=== PATIENT | male | born 1945 | race Caucasian/White ===

== ENCOUNTER 2016-03-02 12:51 | Inpatient (IN) | payer OTHER ==
[~2016-03-02] VITALS: Ht 185.4 cm; Wt 120.3 kg
[~2016-03-02 12:51] MED LIST: ALENDRONATE SOD70 MG PO; BENTYL10 MG PO; CALCIUM + VITA1 EACH PO; CARBAMAZEPINE100 MG PO; CEFEPIME HCL1 GM IM; CHLORHEXIDINE473 ML MM; COLACE100 MG PO; COUMADIN2 MG PO; COUMADIN4 MG PO; DECADRON4 MG PO; DEXAMETHASONE4 MG PO; DILANTIN INFATA50 MG PO; DILANTIN100 MG PO; FLAGYL500 MG PO; HYDROCODON-ACE1 EAC7 PO; KEPPRA500 MG PO; KLOR-CON 1010 ME1 PO; KLOR-CON M1010 MEQ PO; LASIX40 MG PO; LEVAQUIN 7750 MG/150 IV; OMEPRAZOLE20 MG PO; ROCEPHIN1000 MG IM; SENNA S TABLET1 EACH PO; SYNTHROID75 MCG PO; TEGRETOL100 MG PO; TEGRETOL200 MG PO; TYLENOL EXTRA500 MG PO; TYLENOL REGULA325 MG PO; VITAMIN D31000 UNIT PO; ZANTAC150 MG PO
[2016-03-02 13:36] LABS: HEMATOCRIT 44.3 % (38.0-50.0); MCH 32.6 PG (29.0-34.0); MCHC 33.2 G/DL (30.0-36.0); MCV 98.2 FL (86-99); PLATELET COUNT 204 K/uL (156-360); RBC DIS.WIDTH-CV 13.7 % (11.8-14.6); RBC DIS.WIDTH-SD 47.7 % (39-53); RED BLOOD COUNT 4.51 M/uL (4.00-5.50); WHITE BLOOD COUNT 12.7 K/uL (4.1-10.2)
[2016-03-02 13:47] LABS: CHLORIDE 105 mEq/L (99-109); POTASSIUM 3.7 mEq/L (3.7-5.4); SODIUM 146 mEq/L (136-147)
[2016-03-02 13:48] LABS: GLUCOSE 120 mg/dL (70-99)
[2016-03-02 13:50] LABS: ANION GAP 13 MEQ/L (2-14)
[2016-03-02 13:52] LABS: GFR ESTIMATE (CALCULATED) > 59 mL/min/
[2016-03-02 13:53] LABS: UREA NITROGEN (BUN) 13 mg/dL (9-23)
[2016-03-02 13:57] LABS: TROP-I INTERPRETATION POSITIVE
[2016-03-02 14:15] LABS: TROPONIN-I 21.43 ng/mL (0.0-0.30)
[2016-03-02] MEDS ORDERED: ERGOCALCIF50000 UNIT PO (16:29)
[2016-03-02] MEDS ORDERED: OS-CAL 500+D T1 EAC1 PO (16:30)
[2016-03-02] MEDS ORDERED: SENNA S TABLET1 EACH PO (16:30)
[2016-03-02] MEDS ORDERED: CARBAMAZEPINE200 MG PO (16:31)
[2016-03-02] MEDS ORDERED: TYLENOL REGULA325 MG PO ×2 (16:31→16:32)
[2016-03-02] MEDS ORDERED: XARELTO20 MG PO (16:31)
[2016-03-02] MEDS ORDERED: KEPPRA750 MG PO (16:32)
[2016-03-02] MEDS ORDERED: TUMS500 MG PO (16:33)
[2016-03-02] MEDS ORDERED: NITROSTAT0.4 MG SL (16:33)
[2016-03-02 21:10] VITALS: BP 122/59
[2016-03-02 21:10] LABS: TROP-I INTERPRETATION POSITIVE
[2016-03-02 21:11] LABS: TROPONIN-I 170.27 ng/mL (0.0-0.30)
[2016-03-03 00:20] LABS: METH RESISTANT S AUREUS PCR NEGATIVE (NEGATIVE)
[2016-03-03 00:23] LABS: PROBE CHECK PASS; SPECIMEN PROCESSING CONTROL PASS
[2016-03-03 04:56] VITALS: BP 105/68
[2016-03-03 07:02] VITALS: BP 123/74
[2016-03-03 10:59] VITALS: BP 108/54
[2016-03-03 16:05] VITALS: BP 82/51
[2016-03-03 20:08] VITALS: BP 96/55
[2016-03-04 00:09] VITALS: BP 92/45
[2016-03-04 04:56] VITALS: BP 90/54
[2016-03-04 07:00] VITALS: BP 88/54
[2016-03-04 12:37] VITALS: BP 96/52
[2016-03-04 15:59] VITALS: BP 84/50
[2016-03-04 19:47] VITALS: BP 89/52
[2016-03-05 00:23] VITALS: BP 80/52
[2016-03-05 04:59] VITALS: BP 90/62
[2016-03-05 07:10] VITALS: BP 121/56
[2016-03-05 09:17] LABS: HEMATOCRIT 35.5 % (38.0-50.0); MCH 32.9 PG (29.0-34.0); MCV 99.7 FL (86-99); MEAN PLAT.VOLUME 11.2 uM^3 (9.0-12.4); PLATELET COUNT 143 K/uL (156-360); RBC DIS.WIDTH-CV 13.8 % (11.8-14.6); RED BLOOD COUNT 3.56 M/uL (4.00-5.50); WHITE BLOOD COUNT 7.6 K/uL (4.1-10.2)
[2016-03-05 09:34] LABS: ANION GAP 10 MEQ/L (2-14); CHLORIDE 108 MEQ/L (99-109); GFR ESTIMATE (CALCULATED) > 59 mL/min/; GLUCOSE 91 mg/dL (70-99); POTASSIUM 3.3 MEQ/L (3.7-5.4); SAMPLE HEMOLYSIS CHECK 0; SAMPLE ICTERIC CHECK 0; SAMPLE LIPEMIA CHECK 0; SODIUM 142 MEQ/L (136-147); UREA NITROGEN (BUN) 12 mg/dL (9-23)
[2016-03-05] MEDS ORDERED: ASPIR-LOW81 MG PO (11:38)
[2016-03-05] MEDS ORDERED: LOPRESSOR25 MG PO (11:38)
[2016-03-05] MEDS ORDERED: ATORVASTATIN CA40 MG PO (11:38)
[2016-03-05 13:42] VITALS: BP 96/40
[2016-03-05 13:58] LABS: MAGNESIUM 1.6 mg/dl (1.3-2.7)
== END 2016-03-05 15:08 | DRG 281 ==
LOC: EME → EDBD 12:51 → EDOF 15:16 → 4EAST 15:16
PROVIDERS: Emergency Medicine; Internal Medicine; Physician Assistant
DX: I21.3 ST elevation (STEMI) myocardial infarction of unspecified site (principal); C70.0 Malignant neoplasm of cerebral meninges; Z66 Do not resuscitate; Z51.5 Encounter for palliative care; I25.5 Ischemic cardiomyopathy; F01.50 Vascular dementia, unspecified severity, without behavioral disturbance, psychotic disturbance, mood disturbance, and anxiety; I69.351 Hemiplegia and hemiparesis following cerebral infarction affecting right dominant side; I69.320 Aphasia following cerebral infarction; E11.9 Type 2 diabetes mellitus without complications; I10 Essential (primary) hypertension; G40.909 Epilepsy, unspecified, not intractable, without status epilepticus
CPT/HCPCS: 71010; 80048; 83735; 84484; 85027; 86850; 86900; 86901; 87641; 93005; 93306; 99281; 99285; J1650; J2270; J7030; J7050; J8540; S0028